=== PATIENT | male | born 1975 | race Caucasian/White ===

== ENCOUNTER 2018-08-04 13:34 | Emergency (ER) | payer MEDICARE, MEDICAID ==
[~2018-08-04] VITALS: Ht 180.3 cm; Wt 88.8 kg
[~2018-08-04 13:34] MED LIST: ASPI-621 PO; ATOR40TA PO; CLOP75TA52 PO; ENAL2.5T32 PO; METO25TA91 PO; NICO-487 TD; PALI234D SQ; RISP0.253 PO
[2018-08-04 14:12] VITALS: BP 138/88
== END 2018-08-04 14:27 | disposition left against medical advice (07) ==
LOC: ED 14:21
DX: F15.10 Other stimulant abuse, uncomplicated (principal); Z72.9 Problem related to lifestyle, unspecified; I25.10 Atherosclerotic heart disease of native coronary artery without angina pectoris; I25.2 Old myocardial infarction; Y04.0XXA Assault by unarmed brawl or fight, initial encounter
CPT/HCPCS: 99281